=== PATIENT | male | born 1995 ===

== ENCOUNTER 2017-11-20 13:15 | Emergency (ER) | payer OTHER ==
[2017-11-20 13:18] VITALS: BP 142/83; PULSE 88; RESP 16; TEMP 98; O2SAT 100
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
== END 2017-11-20 15:15 | disposition home or self-care (01) ==
LOC: H.ER 13:15
DX: M54.2 Cervicalgia (principal); V43.52XA Car driver injured in collision with other type car in traffic accident, initial encounter; Y92.410 Unspecified street and highway as the place of occurrence of the external cause